=== PATIENT | female | born 1985 | race Caucasian/White ===

== ENCOUNTER 2018-01-28 14:03 | Emergency (ER) | payer SELFPAY ==
[~2018-01-28] VITALS: Ht 162.6 cm; Wt 82.6 kg
[2018-01-28 15:05] VITALS: BP 148/83
== END 2018-01-28 15:19 | disposition home or self-care (01) ==
LOC: ED 14:03
DX: F41.9 Anxiety disorder, unspecified (principal); Z88.6 Allergy status to analgesic agent; Z88.5 Allergy status to narcotic agent
CPT/HCPCS: J2060